=== PATIENT | female | born 1990 | race African-American/Black ===

== ENCOUNTER 2022-05-05 17:26 | Emergency (ER) | payer SELFPAY ==
[2022-05-05 18:09] VITALS: BP 151/59; PULSE 84; RESP 16; TEMP 36.9
[2022-05-05 20:04] VITALS: BP 162/98; PULSE 81; RESP 20; O2SAT 100
[2022-05-05 22:42] VITALS: BP 154/79; PULSE 82; O2SAT 99
== END 2022-05-06 00:21 | disposition left against medical advice (07) ==
PROVIDERS: Emergency Provider Preventive Medicine Aerospace Medicine; PCP Family Medicine
DX: N93.9 Abnormal uterine and vaginal bleeding, unspecified (principal); Z53.21 Procedure and treatment not carried out due to patient leaving prior to being seen by health care provider
CPT/HCPCS: 81025; 99199